=== PATIENT | female | born 1970 | race Caucasian/White ===

== ENCOUNTER → 2023-06-22 14:59 | Outpatient (CLI) | payer BC, SELFPAY ==
--- NOTE | 2023-06-22 14:15 | DI.RAD_ITS ---
Exam(s) XR FOOT RT COMPLETE EXAM: XR FOOT RT COMPLETE CLINICAL HISTORY: Right foot pain M79.671. TECHNIQUE: 2D digital imaging was performed. Three views. COMPARISON: No exams were available for comparison FINDINGS: BONES: No acute fracture is present. No bony destructive lesion is seen. Tiny plantar calcaneal spur . JOINTS: No dislocation present. Mild degenerative changes 1st MTP joint. The arch is maintained. SOFT TISSUE: Normal. IMPRESSION: Mild degenerative changes. DATA REPOSITORY: RADIATION DOSE DELIVERED:
== END ==
PROVIDERS: PCP Nurse Practitioner Family; Visit Provider Podiatrist
DX: M79.671 Pain in right foot (principal)
CPT/HCPCS: 73630